=== PATIENT | female | born 1960 | race Caucasian/White ===

== ENCOUNTER 2016-12-09 10:20 | Day surgery (SDC) | payer OTHER ==
[~2016-12-09] VITALS: Ht 165.1 cm; Wt 64.8 kg
[~2016-12-09 10:20] MED LIST: ALEVE220 MG PO; KRILL OIL500 MG PO; LO-DOSE ASPIRIN81 M2 PO; VITAMIN C500 M1 PO; VITAMIN D-32000 UNI2 PO
[2016-12-09 10:57] VITALS: BP 97/55
[2016-12-09 15:49] VITALS: BP 116/58
[2016-12-09 16:51] VITALS: BP 103/56
== END 2016-12-09 17:06 | disposition home or self-care (01) ==
LOC: SDC 10:20
PROC: 0LQP0ZZ Repair Left Lower Leg Tendon, Open Approach (ICD-10-PCS; principal; 2016-12-09)
DX: S86.312A Strain of muscle(s) and tendon(s) of peroneal muscle group at lower leg level, left leg, initial encounter (principal); M76.72 Peroneal tendinitis, left leg; W19.XXXA Unspecified fall, initial encounter; Y92.009 Unspecified place in unspecified non-institutional (private) residence as the place of occurrence of the external cause; Y99.8 Other external cause status; Y93.9 Activity, unspecified; M79.662 Pain in left lower leg; M79.672 Pain in left foot; R60.0 Localized edema; Z88.2 Allergy status to sulfonamides; Z88.8 Allergy status to other drugs, medicaments and biological substances; Z82.49 Family history of ischemic heart disease and other diseases of the circulatory system; Z83.3 Family history of diabetes mellitus
CPT/HCPCS: J0690; J1100; J1885; J2250; J2405; J2795; J3010; S0020

== ENCOUNTER → 2017-10-20 | Outpatient (CLI) | payer OTHER ==
[~2017-10-20] MED LIST changes: +CYTOTEC200 MCG PO; +VITAMIN B COMP1 EACH PO
== END | disposition home or self-care (01) ==
LOC: CDC 08:29
DX: Z01.810 Encounter for preprocedural cardiovascular examination (principal)
CPT/HCPCS: 93000

== ENCOUNTER 2017-10-26 09:01 | Day surgery (SDC) | payer OTHER ==
[~2017-10-26] VITALS: Ht 162.6 cm; Wt 63.0 kg
[2017-10-26 09:31] VITALS: BP 105/56
[2017-10-26 11:55] VITALS: BP 112/62
[2017-10-26 12:43] VITALS: BP 98/55
== END 2017-10-26 12:46 | disposition home or self-care (01) ==
LOC: SDC
PROC: 0UDB8ZX Extraction of Endometrium, Via Natural or Artificial Opening Endoscopic, Diagnostic (ICD-10-PCS; principal; 2017-10-26)
DX: N84.0 Polyp of corpus uteri (principal); N95.0 Postmenopausal bleeding; Z79.82 Long term (current) use of aspirin; Z88.2 Allergy status to sulfonamides
CPT/HCPCS: 88305; J0690; J1100; J1885; J2405; J3010